=== PATIENT | male | born 1965 | race Caucasian/White ===

== ENCOUNTER 2019-01-31 09:05 | Outpatient (CLI) | payer OTHER, SELFPAY ==
[2019-01-31 10:49] LABS: ALT 18 U/L (12-78); AST 15 U/L (15-37); Albumin 3.6 g/dL (3.4-5.0); Alkaline Phosphatase 127 U/L (46-116); Anion Gap 9.7 mmol/L (3-11); BUN 9 mg/dL (7-18); Bilirubin, Total 0.5 mg/dL (0.2-1.0); CO2 27.3 mmol/L (21.0-32.0); CREATININE 0.97 mg/dL (0.70-1.30); Calcium 8.6 mg/dL (8.5-10.1); Chloride 106 mmol/L (98-107); Cholesterol 148 mg/dL (50-200); Glucose 99 mg/dL (70-100); HDL Cholesterol 42 mg/dL (40-60); LDL CHOLESTEROL 90 mg/dL (<100); Potassium 4.2 mmol/L (3.5-5.1); Sodium 143 mmol/L (136-145); Total Protein 6.6 g/dL (6.4-8.2); Triglyceride 52 mg/dL (30-150)
[2019-02-01 11:33] LABS: PSA, Screening 0.7 ng/ml (0-3.5)
[2019-02-04 16:54] LABS: Testosterone, Free 16.4 ng/dL (4.06-15.6); Testosterone, Total 711 ng/dL (240-950)
== END 2019-01-31 09:25 ==
PROVIDERS: Visit Provider Nurse Practitioner Family
DX: Z00.00 Encounter for general adult medical examination without abnormal findings (principal); Z13.220 Encounter for screening for lipoid disorders; Z13.228 Encounter for screening for other metabolic disorders; Z12.5 Encounter for screening for malignant neoplasm of prostate; N52.8 Other male erectile dysfunction; Z13.6 Encounter for screening for cardiovascular disorders
CPT/HCPCS: 36415; 80053; 80061; 83721; 84153; 84402; 84403

== ENCOUNTER 2019-03-12 06:10 | Day surgery (SDC) | payer OTHER, SELFPAY ==
[2019-03-12 06:31] VITALS: BP 129/86; PULSE 80; RESP 16; TEMP 36.1; O2SAT 97
[2019-03-12] MEDS: Lactated Ringers 1,000 ML 80 ML IV (06:48)
--- NOTE | 2019-03-12 07:40 | W.COLOREPORT ---
Date of service: 03/12/19 Time of Service: 07:40 Colonoscopy Report Date of procedure: 03/12/19 Pre-op diagnosis general: CRC screen Post-op diagnosis procedure note: same Procedure: CE Surgeon: Karen Schmidt Anesthesia proc note operative: GETA Estimated blood loss (mL): 0 Pathology: none sent Complications: None Disposition: same day Indications: CRC screen Prep: Miralax Retraction Time: 10 mins Findings: nl Procedure Description: After informed consent was obtained the patient was taken to the procedure room and placed in a left decubitous position. Monitors were applied and a time out was done. The patients name, date of , procedure, allergies to medications and metal in their body was reviewed. The patient was then sedated. Once sedated and comfortable a rectal exam was done. External exam was normal. Internal exam revealed a normal sphincter tone and no palpable masses. The prostate nl. The scope was then introduced and retrofelexed. Grade I internal hemorrhoids were identified. The scope was then advanced to the cecum minimal difficulty. The TI and appendiceal orifice were identified. The prep was good. The scope was then slowly retracted over 10 minutes back into the rectum. Polyps were removed -none. The scope was removed and the patient was woken up and taken back to Same day surgery in stable condition. The patient tolerated the procedure well and there were no immediate complications. Follow up: The patient should follow up in 10 years unless they develop changes in bowel habits or other new gastrointestinal complaints. repeat in 5 yreas ite
--- NOTE | 2019-03-12 07:43 | PDOC.DSDIS_ITS ---
Discharge Plan Disposition Patient Disposition: HOME Condition: Good Discharge Details Reason For Visit: CRC screen Attending Provider: Karen Schmidt Primary Care Provider: Debbie Ross Home Meds and New Rx's Prescriptions: Continued tadalafil [Cialis] 2.5 mg tablet 2.5 mg PO ONCE PRN (Reason: sexual activity) RF: 0 Discontinued polyethylene glycol 3350 17 gram/dose powder 238 g PO ONCE Qty: 238 RF: 0 bisacodyl [Dulcolax (bisacodyl)] 5 mg tablet,delayed release (DR/EC) 5 mg PO ONCE Qty: 4 RF: 0 Discharge Instructions Additional Instructions: Findings: normal Follow up:repeat in 10 yrs time Please call if you develop: fevers >101.5 Nausea or Vomiting Abdominal pain that is not transient DAY SURGERY UNIT POST COLONOSCOPY INSTRUCTIONS 1. Because there will be medication in your system for the next 24 hours, you may feel a little sleepy. Your coordination will be affected. Therefore: a. Do not drive or operate dangerous equipment for 24 hours. b. Do not drink alcohol beverages for 24 hours (not even beer). c. Plan to go home and rest for the day. 2. Generally there are no restrictions on your activity after a day or so has gone by, but you may feel a bit fatigued for a few days. 3 After you arrive home you may have a light meal and return to a normal diet as you can tolerate it without feeling sick to your stomach. 4. After surgery, you may feel pain or discomfort. This should be only transient , but if it persists please contact your doctor. 5. If there are any questions regarding the findings of your procedure, please feel free to contact your doctor. 6. If you are unable to contact your doctor with a problem, contact the hospital at [phone]. 7. Continue all your regular medications unless directed otherwise. I understand the above instructions and have no questions. Signature of Patient or Responsible Adult Escort Date/Time Name of Responsible Adult Escort Signature of Nurse Date/Time Activity:: no strenuous lifting/activity x 24hrs Shower/Bathe:: 24 hours Diet:: lt meals today Discharge Orders Discharge Orders: Discharge Order (Routine); Ordered 03/12/19 Ordered By: Karen Schmidt DS: Diagnosis Discharge Diagnosis (1) Family history of colon cancer: Status: Chronic
[2019-03-12 08:15] VITALS: BP 135/80; PULSE 68; RESP 16; TEMP 36; O2SAT 98
== END 2019-03-12 08:30 | disposition home or self-care (01) ==
PROVIDERS: PCP Nurse Practitioner Family; Visit Provider Surgery
PROC: 0DJD8ZZ Inspection of Lower Intestinal Tract, Via Natural or Artificial Opening Endoscopic (ICD-10-PCS; CPT 45378; principal; 2019-03-12 07:30)
DX: Z12.11 Encounter for screening for malignant neoplasm of colon (principal); Z80.0 Family history of malignant neoplasm of digestive organs; K64.0 First degree hemorrhoids
CPT/HCPCS: 45378

== ENCOUNTER 2019-08-06 15:31 | Emergency (ER) | payer OTHER, SELFPAY ==
[2019-08-06 15:35] VITALS: BP 128/87; PULSE 81; RESP 16; TEMP 37.1; O2SAT 97
--- NOTE | 2019-08-06 15:58 | ED.GENADUL_ITS ---
Discharge Plan Disposition Patient Disposition: HOME Condition: Good Discharge Details Chief Complaint: Nk/Back Pain Clinical Impression: Viral illness Primary Care Provider: Debbie Ross ED Provider: Brenda Wiseman Home Meds and New Rx's Prescriptions: No Action tadalafil [Cialis] 2.5 mg tablet 2.5 mg PO ONCE PRN (Reason: sexual activity) RF: 0 Discharge Instructions Instructions: Viral Syndrome (ED) Additional Instructions: Push fluids by mouth. Warm salt water gargles. Consider Cepacol lozenge. Rest activities as tolerated. For worsening symptoms or alarming symptoms for example abdominal pain, nausea, vomiting, changes in bowels or worsening back pain or fever have reevaluation as discussed. Recheck with your primary care doctor next 2 to 3 days. Please call your primary care doctor for elevation of your liver function test as discussed Return for any worsening or concerns sooner if needed as discussed Medical Decision Making <NATALIE Alba - Last Filed: 08/06/19 16:23> This is a non toxic appearing 53 yo M with symptoms consistent with virus. Normal vitals here. PE unremarkable. Labs and UA pending. Case signed out to [facility] kathy ESTRADA <NATALIE Andrade - Last Filed: 08/06/19 23:06> Patient signed out pending labs and urinalysis. Patient has no elevation of white blood cell count chemistries are unremarkable the exception of mild transaminase elevation which I did discuss with the patient. Very mild elevation of C-reactive protein. Urine is unremarkable. I discussed these findings with the patient. Patient is not a drinker. Has a very benign abdominal exam. Patient does present with mild sore throat aphthous ulcer noted on the tongue mild fever and chills reported which are subjective. Patient had mild diarrhea. Patient has complaints of musculoskeletal soreness which are diffuse through the lower back. Patient is well-appearing at this time, afebrile. Patient agrees with likelihood of viral illness. Patient agrees with conservative treatments. Encourage close follow-up with his primary care doctor for reevaluation and to review transaminase elevation. Patient agrees with plan of care. Alarming symptoms for which patient to return were discussed. HPI <NATALIE Alba - Last Filed: 08/06/19 16:23> General Date/Time Provider Initiated Documentation: 08/06/19 15:42 . HPI Narrative: Pt here for lower back pain and muscle aches x 2 days. He admits to feeling warm. No nausea or vomiting. No urinary symptoms. No fevers. He has had a sore on the tip of his tongue for the last week. Symptoms do appear to improve s/p Motrin Related Data Home Medications Medication Instructions Recorded Confirmed tadalafil 2.5 mg tablet 2.5 mg PO ONCE PRN tab 02/03/19 03/12/19 Allergies Allergy/AdvReac Type Severity Reaction Status Date / Time aspirin Allergy Intermediate Hives Verified 03/12/19 06:30 General Stated Complaint: Nk/Back Pain ASAD: 4 Review of Systems <NATALIE Alba - Last Filed: 08/06/19 16:23> Constitutional Reports body ache(s), Reports fever(s), Reports lethargy, Denies night sweats and Reports weakness Cardiovascular Denies chest pain, Denies chest pain at rest and Denies dyspnea Respiratory Denies cough and Denies dyspnea Gastrointestinal Denies abdominal pain, Denies diarrhea, Denies nausea and Denies vomiting Genitourinary Denies hematuria, Denies dysuria, Reports flank pain, Denies penile discharge, Denies scrotal swelling, Denies testicular pain and Denies urinary frequency Musculoskeletal Reports back pain and Reports myalgias Neurologic Reports weakness PFSH <NATALIE Alba - Last Filed: 08/06/19 16:23> Medical History Erectile dysfunction (Chronic) Family history of colon cancer (Chronic) Surgical History History of colonoscopy (Resolved) 03/12/19, Dr Schmidt, [facility], normal, repeat 10 years, Family History Other Cancer Social History Smoking/Tobacco Use Status: Never Drug use: Never Substance use type: does not use Do you feel safe at home: Yes Additional Social history: Pt unexpectedly 2 months ago. Exam <NATALIE Alba - Last Filed: 08/06/19 16:23> Const General: cooperative, healthy appearing, comfortable and no acute distress Orientation: alert, awake and oriented x3 HENMT Head: normal to inspection Mouth: tongue abnormal (shallow ulcer at tip of tongue. Surrounding erythema noted) Eyes General: appearance normal, both eyes and all related structures Neck Neck: normal visual inspection, full ROM, no lymphadenopathy and no meningeal signs Chest Chest: normal inspection of the chest Resp Effort & Inspection: normal respiratory effort and able to speak in complete sentences Auscultation: clear to auscultation bilaterally Cardio Jugular venous pressure: no JVD Palpation: normal PMI Rate: regular rate Rhythm: regular rhythm Heart Sounds: S1 normal and S2 normal Pulses: normal peripheral pulses GI Inspection: normal to inspection Palpation: soft Back/Spine/Pelvis Back: no CVA tenderness Thoracic/Lumbar Spine: thoracic and lumbar spine normal to inspection Neuro General: alert, awake and oriented x3 Course <NATALIE Alba - Last Filed: 08/06/19 16:23> Vital Signs Temperature 37.1 C 08/06/19 15:35 Pulse 81 08/06/19 15:35 Respiratory Rate 16 08/06/19 15:35 Blood Pressure 128/87 08/06/19 15:35 Pulse Oximetry 97 08/06/19 15:35 Temperature 37.1 C 08/06/19 15:35 Temperature Source Skin 08/06/19 15:35 Pulse 81 08/06/19 15:35 Respiratory Rate 16 08/06/19 15:35 Respiratory Effort Non-Labored 08/06/19 15:38 Blood Pressure 128/87 08/06/19 15:35 Pulse Oximetry 97 08/06/19 15:35 Oxygen Delivery Method Room Air 08/06/19 15:35 Oxygen Flow Rate 0 08/06/19 15:35 Sign Out <NATALIE Alba - Last Filed: 08/06/19 16:23> Sign Out Data: Sign Out Comment: Pt here for viral symptoms and low back pain. Vitals stable. Labs /UA pending. Last updated by Humberto Deleon PA at 08/06/19 16:17
[2019-08-06 16:14] LABS: Bilirubin Negative (Negative); Blood Negative (Negative); Clarity Clear (Clear); Glucose Negative (Negative); Ketones Negative (Negative); Leukocyte Esterase Negative (Negative); Nitrite Negative (Negative); Urobilinogen 0.2 EU/dL (Up TO 0.2); pH 5.5 (5-8)
[2019-08-06 16:25] LABS: HCT 39.3 % (40.0-50.0); HGB 13.1 g/dL (13.5-17.5); Mean Corp. HGB Concentration 33.3 g/dL (32.0-36.0); Mean Corpuscular Hemoglobin 29.4 pg (27.0-33.0); Mean Corpuscular Volume 88.3 fL (80-95); Mean Platelet Volume 9.4 fL (8.0-11.0); Platelet Count 270 x1000/uL (130-400); RBC 4.45 m/cumm (4.50-6.00); RBC Distribution Width 13.1 % (11.8-14.1); White Blood Cell Count 6.87 k/cumm (4.4-10.8)
[2019-08-06 16:35] LABS: ALT 74 U/L (16-63); AST 56 U/L (15-37); Albumin 3.3 g/dL (3.4-5.0); Alkaline Phosphatase 170 U/L (46-116); Anion Gap 8.1 mmol/L (3-11); BUN 10 mg/dL (7-18); Bilirubin, Total 0.5 mg/dL (0.2-1.0); CO2 26.9 mmol/L (21.0-32.0); CREATININE 1.04 mg/dL (0.70-1.30); Calcium 8.1 mg/dL (8.5-10.1); Chloride 101 mmol/L (98-107); Glucose 99 mg/dL (70-100); Potassium 3.9 mmol/L (3.5-5.1); Sodium 136 mmol/L (136-145); Total Protein 7.2 g/dL (6.4-8.2)
[2019-08-06 17:37] VITALS: BP 112/78; PULSE 96; TEMP 37.4
--- NOTE | 2019-08-06 17:47 | W.ED.GENAD ---
Discharge Plan Disposition Patient Disposition: HOME Condition: Good Discharge Details Chief Complaint: Nk/Back Pain Clinical Impression: Viral illness Primary Care Provider: Debbie Ross ED Provider: Brenda Wiseman Home Meds and New Rx's Prescriptions: No Action tadalafil [Cialis] 2.5 mg tablet 2.5 mg PO ONCE PRN (Reason: sexual activity) RF: 0 Discharge Instructions Instructions: Viral Syndrome (ED) Additional Instructions: Push fluids by mouth. Warm salt water gargles. Consider Cepacol lozenge. Rest activities as tolerated. For worsening symptoms or alarming symptoms for example abdominal pain, nausea, vomiting, changes in bowels or worsening back pain or fever have reevaluation as discussed. Recheck with your primary care doctor next 2 to 3 days. Please call your primary care doctor for elevation of your liver function test as discussed Return for any worsening or concerns sooner if needed as discussed HPI General Date/Time Provider Initiated Documentation: 08/06/19 15:42. Related Data Home Medications Medication Instructions Recorded Confirmed tadalafil 2.5 mg tablet 2.5 mg PO ONCE PRN tab 02/03/19 03/12/19 Allergies Allergy/AdvReac Type Severity Reaction Status Date / Time aspirin Allergy Intermediate Hives Verified 03/12/19 06:30 General Stated Complaint: Nk/Back Pain ASAD: 4 PFSH Medical History Erectile dysfunction (Chronic) Family history of colon cancer (Chronic) Surgical History History of colonoscopy (Resolved) 03/12/19, Dr Schmidt, [facility], normal, repeat 10 years, Family History Other Cancer Social History Smoking/Tobacco Use Status: Never Drug use: Never Substance use type: does not use Do you feel safe at home: Yes Additional Social history: Pt unexpectedly 2 months ago. Course Vital Signs Temperature 37.1 C 08/06/19 15:35 Pulse 81 08/06/19 15:35 Respiratory Rate 16 08/06/19 15:35 Blood Pressure 128/87 08/06/19 15:35 Pulse Oximetry 97 08/06/19 15:35 Temperature 37.4 C 08/06/19 17:37 Temperature Source Temporal Artery Scan 08/06/19 17:37 Pulse 96 H 08/06/19 17:37 Respiratory Rate 16 08/06/19 15:35 Respiratory Effort 08/06/19 17:00 Respiratory Depth Normal 08/06/19 17:00 Respiratory Pattern Normal 08/06/19 17:00 Blood Pressure 112/78 08/06/19 17:37 Pulse Oximetry 97 08/06/19 15:35 Oxygen Delivery Method Room Air 08/06/19 17:37 Oxygen Flow Rate 0 08/06/19 17:37 Lab/Test Results Lab/Test Results: Laboratory Tests Range/Units 08/06/19 08/06/19 08/06/19 16:08 16:20 16:20 WBC (4.4-10.8) k/cumm 6.87 RBC (4.50-6.00) m/cumm 4.45 L Hgb (13.5-17.5) g/dL 13.1 L Hct (40.0-50.0) % 39.3 L MCV (80-95) fL 88.3 MCH (27.0-33.0) pg 29.4 MCHC (32.0-36.0) g/dL 33.3 RDW (11.8-14.1) % 13.1 Plt Count (130-400) x1000/uL 270 MPV (8.0-11.0) fL 9.4 Sodium (136-145) mmol/L 136 Potassium (3.5-5.1) mmol/L 3.9 Chloride (98-107) mmol/L 101 Carbon Dioxide (21.0-32.0) mmol/L 26.9 Anion Gap (3-11) mmol/L 8.1 BUN (7-18) mg/dL 10 Creatinine (0.70-1.30) mg/dL 1.04 Estimated GFR/1.73 m2 (mL/min/1.73m2) >= 60.00 Glucose (70-100) mg/dL 99 Calcium (8.5-10.1) mg/dL 8.1 L Total Bilirubin (0.2-1.0) mg/dL 0.5 AST (15-37) U/L 56 H ALT (16-63) U/L 74 H Alkaline Phosphatase (46-116) U/L 170 H C-Reactive Protein (0.0-0.3) mg/dL 6.70 H Total Protein (6.4-8.2) g/dL 7.2 Albumin (3.4-5.0) g/dL 3.3 L Urine Color (Yellow) Yellow Urine Clarity (Clear) Clear Urine pH (5-8) 5.5 Ur Specific [place] (1.005-1.025) 1.010 Urine Protein (Negative) mg/dL Negative Urine Ketones (Negative) mg/dL Negative Urine Blood (Negative) Negative Urine Nitrite (Negative) Negative Urine Bilirubin (Negative) Negative Urine Urobilinogen (Up TO 0.2) EU/dL 0.2 Ur Leukocyte Esterase (Negative) Negative Urine Glucose (Negative) mg/dL Negative Sign Out Sign Out Data: Sign Out Comment: Pt here for viral symptoms and low back pain. Vitals stable. Labs /UA pending. Last updated by Humberto Deleon PA at 08/06/19 16:17
[2019-08-06 20:30] VITALS: BP 112/78; PULSE 96; RESP 16; TEMP 37.4; O2SAT 97
== END 2019-08-06 18:10 | disposition home or self-care (01) ==
PROVIDERS: Physician Assistant; Emergency Provider Physician Assistant; PCP Nurse Practitioner Family
DX: M79.10 Myalgia, unspecified site (principal); K12.0 Recurrent oral aphthae; R74.0 Nonspecific elevation of levels of transaminase and lactic acid dehydrogenase [LDH]; R79.82 Elevated C-reactive protein (CRP); B34.9 Viral infection, unspecified
CPT/HCPCS: 36415; 80053; 85027; 99282; 81003; 86140; 99283

== ENCOUNTER 2019-08-30 19:20 | Outpatient (REF) | payer OTHER, SELFPAY ==
[2019-08-30 20:02] LABS: ALT 21 U/L (16-63); AST 15 U/L (15-37); Albumin 3.9 g/dL (3.4-5.0); Alkaline Phosphatase 121 U/L (46-116); BUN 9 mg/dL (7-18); Bilirubin, Total 0.6 mg/dL (0.2-1.0); CREATININE 1.06 mg/dL (0.70-1.30); Calcium 8.7 mg/dL (8.5-10.1); Chloride 102 mmol/L (98-107); Glucose 92 mg/dL (70-100); Potassium 4.2 mmol/L (3.5-5.1); Sodium 138 mmol/L (136-145); Total Protein 7.3 g/dL (6.4-8.2)
[2019-09-01 11:43] LABS: Hepatitis C Ab w Rflx HCV PCR Negative (NEGAT)
== END 2019-08-30 19:40 ==
LOC: NCHCN 19:20
PROVIDERS: PCP Nurse Practitioner Family; Visit Provider Nurse Practitioner Family
DX: R74.8 Abnormal levels of other serum enzymes (principal); R63.4 Abnormal weight loss; Z11.59 Encounter for screening for other viral diseases
CPT/HCPCS: 80053; 86803; 84443

== ENCOUNTER 2021-03-20 02:24 | Outpatient (CLI) | payer OTHER, SELFPAY ==
[2021-03-21 12:54] LABS: COVID-19 RT-PCR UVMMC Result Negative (Negative)
== END 2021-03-20 02:25 | disposition home or self-care (01) ==
LOC: LBO 02:24
PROVIDERS: PCP Nurse Practitioner; Visit Provider Nurse Practitioner
DX: Z20.822 Contact with and (suspected) exposure to COVID-19 (principal)
CPT/HCPCS: U0003

== ENCOUNTER 2023-07-23 12:21 | Outpatient (REF) | payer OTHER, SELFPAY ==
[2023-07-23 17:06] LABS: HCT 43.5 % (40.0-50.0); HGB 14.1 g/dL (13.5-17.5); MCHC 32.4 % (32.0-36.0); MCV 90 fL (80-95); MPV 10.1 fL (8.0-11.0); Platelet Count 301 10^3/uL (130-400); RBC 4.86 10^6/uL (4.36-5.78); RDW 12.8 % (11.8-14.1); RDW-SD 41.8 fL; WBC 7.66 10^3/uL (4.4-10.8)
[2023-07-23 18:46] LABS: ALT 32 U/L (16-63); AST 16 U/L (15-37); Albumin 3.7 g/dL (3.4-5.0); Alkaline Phosphatase 144 U/L (46-116); Anion Gap 7.8 mmol/L (3-11); BUN 19 mg/dL (7-18); Bilirubin, Total 0.3 mg/dL (0.2-1.0); CO2 27.2 mmol/L (21.0-32.0); CREATININE 1.1 mg/dL (0.70-1.30); Calcium 8.7 mg/dL (8.5-10.1); Calculated LDL 101 mg/dL (<100); Chloride 103 mmol/L (98-107); Cholesterol 165 mg/dL (<200); Estimated GFR 77.81 (mL/min/1.73m2); Glucose 99 mg/dL (74-106); HDL Cholesterol 47 mg/dL (40-60); Potassium 4.8 mmol/L (3.5-5.1); Sodium 138 mmol/L (136-145); Total Protein 6.8 g/dL (6.4-8.2); Triglyceride 87 mg/dL (<150)
[2023-07-23 22:52] LABS: PSA, Screening 0.4 ng/mL (<=3.5)
== END 2023-07-23 12:22 | disposition home or self-care (01) ==
LOC: NCHCN 12:21
PROVIDERS: Visit Provider Physician Assistant
DX: Z00.00 Encounter for general adult medical examination without abnormal findings (principal); Z13.220 Encounter for screening for lipoid disorders; Z13.228 Encounter for screening for other metabolic disorders; Z12.5 Encounter for screening for malignant neoplasm of prostate; Z13.0 Encounter for screening for diseases of the blood and blood-forming organs and certain disorders involving the immune mechanism
CPT/HCPCS: 80053; 80061; 84153; 85027

== ENCOUNTER 2023-10-12 17:09 | Emergency (ER) | payer OTHER, SELFPAY ==
[2023-10-12 17:11] VITALS: BP 128/67; PULSE 83; RESP 18; TEMP 36.5; O2SAT 100
--- NOTE | 2023-10-12 18:15 | DI.RAD_ITS ---
Exam(s) XR HAND RT COMPLETE EXAM: XR HAND RT COMPLETE CLINICAL HISTORY: ring finger infection. TECHNIQUE: 2D digital imaging was performed. Three views. COMPARISON: No exams were available for comparison FINDINGS: BONES: No acute fracture is present. No bony destructive lesion is seen. JOINTS: No dislocation present. SOFT TISSUE: No foreign body or gas collection. Dorsal swelling over the metacarpals. Swelling of t he ring finger.. IMPRESSION: Soft tissue swelling. DATA REPOSITORY: RADIATION DOSE DELIVERED:
[2023-10-12 19:04] LABS: Abs Immature Grans 0.04 10^3/uL (0.0-0.06); Absolute Basophil Count 0.04 10^3/uL (0.0-0.2); Absolute Eosinophil Count 0.14 10^3/uL (0.0-0.7); Absolute Monocyte Count 0.86 10^3/uL (0.1-0.8); Basophils % 0.4; Eosinophils % 1.3; HCT 39.7 % (40.0-50.0); HGB 12.9 g/dL (13.5-17.5); Immature Grans % 0.4; Lymphocytes % 9.1; MCH 29.3 pg (27.0-33.0); MCHC 32.5 % (32.0-36.0); MCV 90 fL (80-95); MPV 9.3 fL (8.0-11.0); Monocytes % 7.8; Platelet Count 287 10^3/uL (130-400); RDW 13.2 % (11.8-14.1); RDW-SD 43.5 fL; WBC 10.99 10^3/uL (4.4-10.8)
[2023-10-12] MEDS: ceFAZolin 1 GM/50 ML BAG IVPB (19:13)
[2023-10-12 19:15] LABS: ESR 3 mm/hr (0-20)
[2023-10-12 19:19] LABS: ALT 40 U/L (16-63); AST 32 U/L (15-37); Albumin 3.6 g/dL (3.4-5.0); Alkaline Phosphatase 154 U/L (46-116); BUN 15 mg/dL (7-18); Bilirubin, Total 0.5 mg/dL (0.2-1.0); C-Reactive Protein 0.86 mg/dL (0.0-0.3); CREATININE 1.3 mg/dL (0.70-1.30); Calcium 8.8 mg/dL (8.5-10.1); Chloride 105 mmol/L (98-107); Estimated GFR 63.28 (mL/min/1.73m2); Glucose 97 mg/dL (74-106); Magnesium 2.3 mg/dL (1.8-2.4); Potassium 3.8 mmol/L (3.5-5.1); Sodium 139 mmol/L (136-145); Total Protein 7.2 g/dL (6.4-8.2)
--- NOTE | 2023-10-12 19:56 | DI.VRAD_ITS ---
PROCEDURE INFORMATION: Exam: XR Right Hand Exam date and time: 10/12/2023 7:21 PM Age: 58 years old Clinical indication: Right; Patient HX: R finger infection, redness and swelling into hand TECHNIQUE: Imaging protocol: Radiologic exam of the right hand. Views: 3 or more views. COMPARISON: No relevant prior studies available. FINDINGS: Bones/joints: Normal. Soft tissues: Normal. IMPRESSION: No acute findings. Dictated and Authenticated by: Avila Wright MD. Ordering:REMINGTON Graves MD
--- NOTE | 2023-10-12 20:00 | ED.GENADUL_ITS ---
Discharge Plan Disposition Patient Disposition: Home Discharge Details Clinical Impression: Cellulitis of hand Primary Care Provider: None,None ED Provider: Star Meyer Home Meds and New Rx's Prescriptions: New cephalexin 500 mg tablet 500 mg PO QID 6 Days Qty: 24 0RF Discharge Instructions Instructions: Cellulitis (ED) Additional Instructions: Please take antibiotics as prescribed and closely monitor your symptoms. If you have any new or significant worsening of your condition or not seeing any improvement in the next 24 to 48 hours please return the emergency department for reassessment or follow-up with your primary care provider for recheck of your symptoms preferably in the next couple days. Referrals: Lorenzo White [ NON-[facility] STAFF PHYSICIAN] - 2 days Medical Decision Making Patient presenting to the emergency department for chief complaint of right ring finger and hand infection. 2 days ago he noticed a small pimple on the backside of his middle phalanx of the right hand. Significant other attempted to pop and stated that there was slightly yellow-colored discharge from popped pustule. Since then patient has had increased redness and swelling occurring to the digit. Patient denies any systemic symptoms. States that no joint pain but just diffuse dorsal finger and hand pain. Physical exam shows findings consistent with cellulitis to the finger. No flexor tendon synovitis noted as there are no plantar erythema or tenderness to palpation. There is diffuse swelling of the digit, and dorsal hand pain but no tendinopathy noted. Given that this is involving the hand will perform labs and x-ray imaging. Pending results will give patient dose of Ancef. Review of vital signs is stable and patient is nontoxic in appearance. Review of labs does show a slight leukocytosis and subtle anemia, CMP overall unremarkable except for mildly elevated alk phos, ESR is within normal range and CRP is elevated at 0.86 but otherwise labs are nondiagnostic. X-ray shows no acute findings. I do feel that patient is stable candidate for to attend outpatient medication so patient placed upon Keflex and placed on referral to primary care with preferred follow-up in 48 hours just to ensure that patient is not having any worsening of symptoms and we are seeing signs of improvement. After discussion of diagnosis and plan of care patient has no further needs, questions, or concerns and states clear understanding to return to the emergency department for any worsening symptoms. This documentation was generated using [employer] system, please disregard any oddities of phrase or misspellings. Imaging Data Radiologic Study: Imaging: X-Ray Radiologist's impression: Exam(s) PROCEDURE INFORMATION: Exam: XR Right Hand Exam date and time: 10/12/2023 7:21 PM Age: 58 years old Clinical indication: Right; Patient HX: R finger infection, redness and swelling into hand TECHNIQUE: Imaging protocol: Radiologic exam of the right hand. Views: 3 or more views. COMPARISON: No relevant prior studies available. FINDINGS: Bones/joints: Normal. Soft tissues: Normal. IMPRESSION: No acute findings. Lab Data Lab results reviewed: Yes I reviewed the patient's lab results. HPI General Mode of arrival: ambulatory . Date/Time Provider Initiated Documentation: 10/12/23 17:23 . Limitations to Documentation: no limitations . Information obtained by: patient and RN notes reviewed . History of Present Illness 58 year old M presents to the emergency department with the chief complaint of Right ring finger infection, described as mild and moderate, and is localized to the right and upper extremity. Patient started experiencing this day(s) (2) and it has been constant. No relieving factors improve symptom(s), No exacerbating factors reported . Patient notes no other symptoms.. Patient did receive the following treatments prior to arriva l, none Related Data Home Medications Medication Instructions Recorded Confirmed cephalexin 500 mg tablet 500 mg PO QID 6 days #24 tabs 10/12/23 Previous Rx's Medication Instructions Recorded cephalexin 500 mg tablet 500 mg PO QID 6 days #24 tabs 10/12/23 Allergies Allergy/AdvReac Type Severity Reaction Status Date / Time aspirin Allergy Intermediate Hives Verified 10/12/23 17:14 General Stated Complaint: Cellulitis ASAD: 3 Review of Systems Constitutional Constitutional: Denies chills, Denies fever(s) and Denies malaise Musculoskeletal Musculoskeletal: Denies arthralgias, Reports joint swelling and Reports limited range of motion Integumentary/Breasts Skin/Breast: Reports erythema and Reports skin pain PFSH All Active Problems Cellulitis of hand (Acute) Raynaud phenomenon (Acute) left hand digits 2-3 Inguinal hernia (Acute) Family history of colon cancer (Chronic) Surgical History History of colonoscopy 03/12/19, Dr Schmidt, [facility], normal, repeat 10 years, Family History Mother , age 74 Heart disease Father , age 79 Liver cancer Sister No problems noted. Brother No problems noted. Son No problems noted. Son No problems noted. Daughter No problems noted. Daughter No problems noted. Other Cancer Social History Smoking/Tobacco Use Status: Never Second Hand Exposure: Yes Smoking risk assessment performed?: Yes Alcohol Intake: current Alcohol Intake frequency: a few times a month Alcohol type: hard liquor Drug use: Never Substance use type: does not use Caregiver/Support person: No Household members: spouse and family Housing: house Do you need help understanding health information?: Rarely Pets and animals: Yes Pets and animals: dog(s) Sexually active: Yes Do you think of yourself as: straight/heterosexual Current gender identity: female What is your relationship status?: living with partner How often do you talk on the phone with friends or family?: once per week How often do you get together with friends or relatives?: never How often do you attend zoroastrian or nondenominational services?: decline to answer Do you belong to any clubs or organized social groups?: no Panel score (0-1 are the most socially isolated patients): 1 Duration: < 15 minutes/day Frequency: 5-6 times per week April/Lutheran: None Special april needs: No Seatbelt use: always Helmet use: Yes Helmet use: always Drive intox or ride w/intox independent driver: No Do you feel safe at home: Yes Additional Social history: Pt unexpectedly 2 months ago. Exam Const General: cooperative, no acute distress and not ill appearing Orientation: alert, awake and oriented x3 HENMT Mouth: moist mucous membranes Resp Effort & Inspection: normal respiratory effort, able to speak in complete sentences and no respiratory distress Cardio Rate: regular rate Rhythm: regular rhythm Pulses: normal peripheral pulses Skin General skin exam: no rashes or lesions noted Neuro General: patient alert, patient awake, patient oriented x3, moves all extremities and no focal motor deficits Sensory Exam: no sensory deficits noted Extrem General: normal exam except as noted Right upper extremity: hand Details: neurosensory exam normal, tendon exam normal, tenderness Location: of the 4th digit Location: involving the entire digit, abnormal ROM of finger Details: pain with active ROM Location: of the 4th digit (Secondary to swelling); no pain with passive ROM and able to flex, swelling Location: of the 4th digit and other (Erythema only to the dorsal aspect of the fourth digit and the dorsal hand) Course Vital Signs Vital signs: Vital Signs Temperature 36.5 C 10/12/23 17:11 Pulse 83 10/12/23 17:11 Respiratory Rate 18 10/12/23 17:11 Blood Pressure 128/67 10/12/23 17:11 Pulse Oximetry 100 10/12/23 17:11 Temperature 36.5 C 10/12/23 17:11 Temperature Source Temporal Artery Scan 10/12/23 17:11 Pulse 83 10/12/23 17:11 Respiratory Rate 18 10/12/23 17:11 Respiratory Effort Normal, Non-Labored 10/12/23 17:15 Blood Pressure 128/67 10/12/23 17:11 Blood Pressure Position Sitting 10/12/23 17:11 Pulse Oximetry 100 10/12/23 17:11 Oxygen Delivery Method Room Air 10/12/23 17:11 Oxygen Flow Rate 0 10/12/23 17:11 Pain Level 4 10/12/23 17:37 Lab/Test Results Lab/Test Results: 10/12/23 18:54 Blood Blood Culture - Pending 10/12/23 18:23 Blood Blood Culture - Pending Laboratory Tests Range/Units 10/12/23 18:54 WBC (4.4-10.8) 10^3/uL 10.99 H RBC (4.36-5.78) 10^6/uL 4.40 Hgb (13.5-17.5) g/dL 12.9 L Hct (40.0-50.0) % 39.7 L MCV (80-95) fL 90 MCH (27.0-33.0) pg 29.3 MCHC (32.0-36.0) % 32.5 RDW (11.8-14.1) % 13.2 Plt Count (130-400) 10^3/uL 287 MPV (8.0-11.0) fL 9.3 Immature Gran % 0.4 Neutrophils % 81.0 Lymphocytes % 9.1 Monocytes % 7.8 Eosinophils % 1.3 Basophils % 0.4 Nucleated RBC % (0.0-0.3) % 0.0 Absolute Neutrophils (1.2-6.7) 10^3/uL 8.90 H Absolute Lymphocytes (1.2-3.4) 10^3/uL 1.00 L Absolute Monocytes (0.1-0.8) 10^3/uL 0.86 H Absolute Eosinophils (0.0-0.7) 10^3/uL 0.14 Absolute Basophils (0.0-0.2) 10^3/uL 0.04 ESR (0-20) mm/hr 3 Sodium (136-145) mmol/L 139 Potassium (3.5-5.1) mmol/L 3.8 Chloride (98-107) mmol/L 105 Carbon Dioxide (21.0-32.0) mmol/L 31.0 Anion Gap (3-11) mmol/L 3.0 BUN (7-18) mg/dL 15 Creatinine (0.70-1.30) mg/dL 1.3 Est GFR (CKD-EPI 2020) (mL/min/1.73m2) 63.28 Glucose (74-106) mg/dL 97 Calcium (8.5-10.1) mg/dL 8.8 Magnesium (1.8-2.4) mg/dL 2.3 Total Bilirubin (0.2-1.0) mg/dL 0.5 AST (15-37) U/L 32 ALT (16-63) U/L 40 Alkaline Phosphatase (46-116) U/L 154 H C-Reactive Protein (0.0-0.3) mg/dL 0.86 H Total Protein (6.4-8.2) g/dL 7.2 Albumin (3.4-5.0) g/dL 3.6
[2023-10-12] MEDS: Cephalexin 500 MG CAP, 4 CAPS/BTL PO (20:17)
--- NOTE | 2023-10-12 20:19 | NUR.NOTE ---
Pt placed on care management referral list for R hand , and ring finger cellulitis. Per ED provider Betsy pt needs to be seen by primary Lorenzo White within 2 days.
== END 2023-10-12 20:19 | disposition home or self-care (01) ==
PROVIDERS: Emergency Provider Nurse Practitioner Family
DX: L03.011 Cellulitis of right finger (principal); D72.829 Elevated white blood cell count, unspecified; D64.9 Anemia, unspecified
CPT/HCPCS: 80053; 85652; 87040; 96365; 99283; 73130; 83735; 85025; 86140; J0690

== ENCOUNTER 2023-10-15 15:04 | Outpatient (REF) | payer OTHER, SELFPAY | END 2023-10-15 15:05 | disposition home or self-care (01) | LOC: NCHCN 15:04 | PROVIDERS: Visit Provider Family Medicine | DX: L03.011 Cellulitis of right finger (principal) | CPT/HCPCS: 87077; 87070; 87186; 87205 ==

== ENCOUNTER 2024-02-13 02:52 | Outpatient (CLI) | payer OTHER, SELFPAY ==
[2024-02-13 09:17] LABS: Abs Immature Grans 0.02 10^3/uL (0.0-0.06); Absolute Basophil Count 0.04 10^3/uL (0.0-0.2); Absolute Eosinophil Count 0.07 10^3/uL (0.0-0.7); Absolute Lymphocyte Count 0.89 10^3/uL (1.2-3.4); Absolute Neutrophil Count 3.51 10^3/uL (1.2-6.7); Basophils % 0.8; Eosinophils % 1.3; HCT 40.6 % (40.0-50.0); HGB 13.2 g/dL (13.5-17.5); Immature Grans % 0.4; MCH 29.3 pg (27.0-33.0); MCHC 32.5 % (32.0-36.0); MCV 90 fL (80-95); MPV 9.3 fL (8.0-11.0); Monocytes % 13.4; Neutrophils % 67.1; Platelet Count 262 10^3/uL (130-400); RDW-SD 42.7 fL; WBC 5.23 10^3/uL (4.4-10.8)
[2024-02-13 09:41] LABS: ALT 30 U/L (16-63); AST 20 U/L (15-37); Albumin 3.3 g/dL (3.4-5.0); Alkaline Phosphatase 132 U/L (46-116); Anion Gap 6.8 mmol/L (3-11); BUN 15 mg/dL (7-18); Bilirubin, Total 0.5 mg/dL (0.2-1.0); CO2 29.2 mmol/L (21.0-32.0); CREATININE 1.1 mg/dL (0.70-1.30); Calcium 8.4 mg/dL (8.5-10.1); Calculated LDL 88 mg/dL (<100); Chloride 108 mmol/L (98-107); Cholesterol 146 mg/dL (<200); Estimated GFR 77.33 (mL/min/1.73m2); Glucose 94 mg/dL (74-106); HDL Cholesterol 51 mg/dL (40-60); Potassium 4.1 mmol/L (3.5-5.1); Sodium 144 mmol/L (136-145); TSH (W/Ref FT4) 1.25 uIU/mL (0.36-3.74); Total Protein 6.5 g/dL (6.4-8.2); Triglyceride 37 mg/dL (<150)
[2024-02-13 18:20] LABS: PSA, Screening 0.4 ng/mL (<=3.5)
== END 2024-02-13 02:53 | disposition home or self-care (01) ==
LOC: LBO 02:52
PROVIDERS: Visit Provider Nurse Practitioner Family
DX: I10 Essential (primary) hypertension (principal); E78.5 Hyperlipidemia, unspecified; E66.9 Obesity, unspecified
CPT/HCPCS: 36415; 80053; 80061; 84153; 84443; 85025

== ENCOUNTER 2024-04-19 11:02 | Outpatient (CLI) | payer OTHER, SELFPAY ==
[2024-04-19 11:17] LABS: Abs Immature Grans 0.04 10^3/uL (0.0-0.06); Absolute Basophil Count 0.03 10^3/uL (0.0-0.2); Absolute Eosinophil Count 0.05 10^3/uL (0.0-0.7); Absolute Monocyte Count 0.67 10^3/uL (0.1-0.8); Absolute Neutrophil Count 4.71 10^3/uL (1.2-6.7); Basophils % 0.5 %; Eosinophils % 0.8 %; HGB 13.6 g/dL (13.5-17.5); Immature Grans % 0.6 %; Lymphocytes % 14.1 %; MCH 29.4 pg (27.0-33.0); MCHC 32.4 % (32.0-36.0); MCV 91 fL (80-95); MPV 9.2 fL (8.0-11.0); Monocytes % 10.5 %; Neutrophils % 73.5 %; Platelet Count 262 10^3/uL (130-400); RBC 4.63 10^6/uL (4.36-5.78); RDW 12.9 % (11.8-14.1); RDW-SD 42.9 fL
[2024-04-19 11:49] LABS: Ferritin 246 ng/mL (26-388)
[2024-04-19 12:07] LABS: Iron 62 ug/dL (65-175); Total Iron Binding Capacity 268 ug/dL (250-450); Transferrin Sat 23 % (20-55)
== END 2024-04-19 11:03 | disposition home or self-care (01) ==
LOC: LBO 11:27
PROVIDERS: PCP Nurse Practitioner Family; Visit Provider Nurse Practitioner Family
DX: D64.9 Anemia, unspecified (principal)
CPT/HCPCS: 36415; 82728; 83540; 83550; 85025